=== PATIENT | male | born 1945 | race Caucasian/White ===

== ENCOUNTER 2016-12-21 16:31 | Emergency (ER) | payer MEDICARE, SELFPAY ==
[~2016-12-21] VITALS: Ht 188 cm; Wt 70.5 kg
[~2016-12-21 16:31] MED LIST: ASPI325T PO
[2016-12-21] MEDS ORDERED: LIDOCAINE 2% MDV 20 ML VIAL SC ONE (18:00)
[2016-12-21] MEDS ORDERED: ADACEL/BOOSTRIX VACCINE (DIPHTH/PERTUSS/ACELL/TETANUS)0.5ML SYR (90715) IM ONE (18:00)
[2016-12-21] MEDS ORDERED: KEFL500C17 PO (18:34)
[2016-12-21 18:41] VITALS: BP 136/77
[2016-12-21] MEDS ORDERED: CEPHALEXIN 500 MG CAP PO ONE (18:45)
== END 2016-12-21 18:50 | disposition home or self-care (01) ==
LOC: M ED 16:31
DX: S61.411A Laceration without foreign body of right hand, initial encounter (principal); X58.XXXA Exposure to other specified factors, initial encounter; Y92.099 Unspecified place in other non-institutional residence as the place of occurrence of the external cause; Y93.9 Activity, unspecified; Y99.9 Unspecified external cause status; F17.200 Nicotine dependence, unspecified, uncomplicated

== ENCOUNTER 2018-02-07 19:37 | Emergency (ER) | payer SELFPAY | END 2018-02-07 22:34 | disposition home or self-care (01) | LOC: M ED 19:37 | DX: T68.XXXA Hypothermia, initial encounter (principal); T33.52 Superficial frostbite of hand; I10 Essential (primary) hypertension; F17.210 Nicotine dependence, cigarettes, uncomplicated; Z86.73 Personal history of transient ischemic attack (TIA), and cerebral infarction without residual deficits; Y92.9 Unspecified place or not applicable | CPT/HCPCS: 70450 ==

== ENCOUNTER 2019-02-27 10:51 | Emergency (ER) | payer SELFPAY ==
[~2019-02-27] VITALS: Ht 185.4 cm; Wt 70.0 kg
[~2019-02-27 10:51] MED LIST changes: +KEFL500C17 PO; +NON-325T5 PO
[2019-02-27] MEDS ORDERED: ASPI81TA85 PO (11:08)
[2019-02-27] MEDS ORDERED: multivitamin PO (11:10)
[2019-02-27] MEDS ORDERED: iron PO (11:10)
[2019-02-27] MEDS ORDERED: vitamin d PO (11:10)
--- NOTE | 2019-02-27 11:42 | REP ---
Clinical: Trauma. Comparison: 02/07/2018 . Findings: Age-related atrophy with periventricular leukomalacia and microvascular ischemic changes. 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 The ventricles and sulci are symmetric. [place]-white differentiation is maintained. There is no evidence for acute intracranial hemorrhage, mass/mass effect, pathology or infarction. No extra-axial fluid collection. Calvarium is intact. Paranasal sinuses and mastoid air cells are clear. Impression: Atrophy and evidence for old infarctions. No acute intracranial hemorrhage, infarction, or mass/mass effect. Electronically Signed by Sarwat Coats MD 02/27/2019 11:34 A
--- NOTE | 2019-02-27 11:43 | REP ---
Clinical: Trauma. Technique: Axial noncontrast images from the skull base to the thoracic inlet with coronal and sagittal re-formations. Comparison: 02/07/2018. Findings: Age-related osteopenia and early advanced multilevel degenerative disc osteophyte complexes are appreciated. Alignment and lordosis maintained. No acute fracture / compression injury or subluxation. Posterior elements and spinous processes are intact. Paravertebral soft tissues are normal. Impression: Early advanced multilevel degenerative spondylosis similar to prior examination. No evidence for acute cervical trauma/injury. Electronically Signed by Sawrat Coats MD 02/27/2019 11:36 A
--- NOTE | 2019-02-27 11:56 | REP ---
Clinical: Trauma. Technique: AP, lateral, bilateral oblique views of the right ankle. Findings: Oblique fracture of the distal fibular metaphysis and nondisplaced fracture of the medial malleolus appreciated with overlying soft tissue swelling. Impression: Bilateral malleolar fractures. Electronically Signed by Sarwat Coats MD 02/27/2019 11:49 A
[2019-02-27] MEDS ORDERED: NORC1TAB7 PO (12:25)
[2019-02-27 13:23] VITALS: BP 174/98
[2019-02-27] MEDS ORDERED: wheel chair (13:42)
== END 2019-02-27 14:23 | disposition home or self-care (01) ==
LOC: EDBD 10:51 → M ED 10:51
DX: S82.54XA Nondisplaced fracture of medial malleolus of right tibia, initial encounter for closed fracture (principal); S82.391A Other fracture of lower end of right tibia, initial encounter for closed fracture; S00.03XA Contusion of scalp, initial encounter; W01.0XXA Fall on same level from slipping, tripping and stumbling without subsequent striking against object, initial encounter; Y92.009 Unspecified place in unspecified non-institutional (private) residence as the place of occurrence of the external cause; Y93.K9 Activity, other involving animal care; Y99.9 Unspecified external cause status; I10 Essential (primary) hypertension; M25.78 Osteophyte, vertebrae; M47.812 Spondylosis without myelopathy or radiculopathy, cervical region; F17.200 Nicotine dependence, unspecified, uncomplicated; Z79.82 Long term (current) use of aspirin; Z79.899 Other long term (current) drug therapy

== ENCOUNTER 2020-10-08 12:56 | Emergency (ER) | payer MEDICARE, SELFPAY ==
[~2020-10-08] VITALS: Ht 188 cm; Wt 70.5 kg
[~2020-10-08 12:56] MED LIST changes: +ACET32TAB PO; +ASPI81TA86 PO; -NON-325T5 PO; +NORC1TAB7 PO; +iron PO; +multivitamin PO; +vitamin d PO; +wheel chair
[2020-10-08] MEDS ORDERED: predniSONE 20 MG TAB PO ONE (15:30)
--- NOTE | 2020-10-08 15:58 | REP ---
INDICATION: R HALLUX ARTHRITIS COMPARISON: None. TECHNIQUE: There are four views. FINDINGS: There is diffuse demineralization. The joint spaces are unremarkable. There is hallux valgus. There are no lytic, blastic or destructive skeletal changes. There are no calcifications. IMPRESSION: Demineralization. Hallux valgus. <Electronically signed by Greg Hurtado > 10/08/20 [id number]
[2020-10-08 16:33] LABS: BASO % 0.4 % (0.0-1.0); EOS % 0.3 % (0.0-3.0); HEMATOCRIT 49.3 % (42.0-52.0); HEMOGLOBIN 15.5 g/dl (13.5-17.5); LYMPH % 19.7 % (24.0-44.0); MEAN CORPUSCULAR HEMOGLOBIN 27.3 pg (27.0-33.0); MEAN CORPUSCULAR HGB CONC 31.4 g/dl (32.0-36.5); MEAN CORPUSCULAR VOLUME 86.8 fl (80.0-96.0); MONO # 0.7 10^3/uL (0.0-0.8); MONO % 6.8 % (2.0-8.0); NEUTROPHILS # 7.4 10^3/uL (1.5-8.5); NEUTROPHILS % 72.3 % (36.0-66.0); PLATELET COUNT, AUTOMATED 285 10^3/uL (150-450); RED BLOOD COUNT 5.68 10^6/uL (4.30-6.10); WHITE BLOOD COUNT 10.2 10^3/uL (4.0-10.0)
[2020-10-08 16:38] LABS: ALBUMIN 3.5 GM/DL (3.2-5.2); BILIRUBIN,DIRECT 0.3 MG/DL (0.0-0.2); BILIRUBIN,TOTAL 1.7 MG/DL (0.2-1.0); CALCIUM LEVEL 8.6 MG/DL (8.8-10.2); CREATININE FOR GFR 1.55 MG/DL (0.70-1.30); GLOMERULAR FILTRATION RATE 46.9 (>42); TOTAL PROTEIN 7.9 GM/DL (6.4-8.2)
[2020-10-08 16:39] LABS: C REACTIVE PROTEIN QUANTITATIV 5.1 MG/DL (0.00-0.30)
[2020-10-08 16:52] LABS: ERYTHROCYTE SEDIMENTATION RATE 8 mm/hr (0-20)
[2020-10-08] MEDS ORDERED: PRED20TA PO (16:59)
[2020-10-08 17:11] VITALS: BP 180/82
== END 2020-10-08 17:14 | disposition home or self-care (01) ==
LOC: M ED 12:56
DX: M19.071 Primary osteoarthritis, right ankle and foot (principal); M20.11 Hallux valgus (acquired), right foot; R79.9 Abnormal finding of blood chemistry, unspecified; D72.829 Elevated white blood cell count, unspecified; Z86.73 Personal history of transient ischemic attack (TIA), and cerebral infarction without residual deficits; H40.9 Unspecified glaucoma; F17.200 Nicotine dependence, unspecified, uncomplicated; Z79.82 Long term (current) use of aspirin
CPT/HCPCS: 36415; 73660; 80048; 80076; 84550; 85025; 85652; 86140; 99283; J7512

== ENCOUNTER → 2021-04-11 | Outpatient (CLI) | payer MEDICARE ==
[~2021-04-11] MED LIST changes: +PRED20TA PO
[2021-04-11 17:28] LABS: BASO % 0.4 % (0.0-1.0); EOS # 0.1 10^3/uL (0.0-0.5); EOS % 0.8 % (0.0-3.0); HEMATOCRIT 47.7 % (42.0-52.0); HEMOGLOBIN 15.1 g/dl (13.5-17.5); LYMPH # 2.1 10^3/uL (1.5-5.0); LYMPH % 27.8 % (24.0-44.0); MEAN CORPUSCULAR HEMOGLOBIN 27.2 pg (27.0-33.0); MEAN CORPUSCULAR HGB CONC 31.7 g/dl (32.0-36.5); MEAN CORPUSCULAR VOLUME 85.9 fl (80.0-96.0); MONO # 0.6 10^3/uL (0.0-0.8); MONO % 7.1 % (2.0-8.0); NEUTROPHILS # 4.9 10^3/uL (1.5-8.5); NEUTROPHILS % 63.6 % (36.0-66.0); PLATELET COUNT, AUTOMATED 218 10^3/uL (150-450); RED BLOOD COUNT 5.55 10^6/uL (4.30-6.10); WHITE BLOOD COUNT 7.7 10^3/uL (4.0-10.0)
[2021-04-11 17:57] LABS: ALBUMIN 3.6 GM/DL (3.2-5.2); BILIRUBIN,TOTAL 1.2 MG/DL (0.2-1.0); CALCIUM LEVEL 9.2 MG/DL (8.8-10.2); CHOLESTEROL RISK RATIO 3.886 (<5); CREATININE FOR GFR 1.35 MG/DL (0.70-1.30); POTASSIUM SERUM 4.8 MEQ/L (3.5-5.1); TOTAL PROTEIN 7.4 GM/DL (6.4-8.2)
== END ==
LOC: M PLALAB 15:42
PROVIDERS: ATTEND Student in an Organized Health Care Education/Training Program
DX: R79.89 Other specified abnormal findings of blood chemistry (principal); Z86.73 Personal history of transient ischemic attack (TIA), and cerebral infarction without residual deficits; Z13.0 Encounter for screening for diseases of the blood and blood-forming organs and certain disorders involving the immune mechanism

== ENCOUNTER 2022-02-26 11:56 | Emergency (ER) | payer MEDICARE ==
[~2022-02-26] VITALS: Ht 188 cm; Wt 70.5 kg
[2022-02-26 12:06] VITALS: BP 162/94
== END 2022-02-26 14:21 | disposition home or self-care (01) ==
LOC: EDBD 11:56 → M ED 11:56
DX: S00.93XA Contusion of unspecified part of head, initial encounter (principal); S40.021A Contusion of right upper arm, initial encounter; W01.0XXA Fall on same level from slipping, tripping and stumbling without subsequent striking against object, initial encounter; F17.200 Nicotine dependence, unspecified, uncomplicated; Y92.9 Unspecified place or not applicable; Y93.K1 Activity, walking an animal; Y99.9 Unspecified external cause status; Z79.52 Long term (current) use of systemic steroids; Z86.73 Personal history of transient ischemic attack (TIA), and cerebral infarction without residual deficits

== ENCOUNTER 2022-02-28 12:25 | Inpatient (IN) | payer MEDICARE ==
[~2022-02-28] VITALS: Ht 175.3 cm; Wt 70.0 kg
[2022-02-28 15:39] LABS: BASO % 0.1 % (0.0-1.0); HEMATOCRIT 48.6 % (42.0-52.0); HEMOGLOBIN 15.5 g/dl (13.5-17.5); LYMPH # 0.9 10^3/uL (1.5-5.0); LYMPH % 8.3 % (24.0-44.0); MEAN CORPUSCULAR HEMOGLOBIN 27.9 pg (27.0-33.0); MEAN CORPUSCULAR HGB CONC 31.9 g/dl (32.0-36.5); MEAN CORPUSCULAR VOLUME 87.4 fl (80.0-96.0); MONO # 0.8 10^3/uL (0.0-0.8); MONO % 7.4 % (2.0-8.0); NEUTROPHILS % 83.9 % (36.0-66.0); PLATELET COUNT, AUTOMATED 211 10^3/uL (150-450); RED BLOOD COUNT 5.56 10^6/uL (4.30-6.10); WHITE BLOOD COUNT 10.8 10^3/uL (4.0-10.0)
[2022-02-28 16:08] LABS: CALCIUM LEVEL 9.3 MG/DL (8.3-10.6); CREATININE FOR GFR 1.34 MG/DL (0.70-1.30); GLOMERULAR FILTRATION RATE 55.3 (>42); POTASSIUM SERUM 4.2 MMOL/L (3.5-5.1)
[2022-02-28] MEDS ORDERED: NS 2,010 ML in IV 1 EA IV ONE (17:55)
[2022-02-28] MEDS ORDERED: CLOP75TA2 PO (18:43)
[2022-02-28] MEDS ORDERED: VITMTA PO (18:43)
[2022-02-28] MEDS ORDERED: ASPI81TA26 PO (18:43)
[2022-02-28] MEDS ORDERED: ATOR40TA75 PO (18:43)
[2022-02-28] MEDS ORDERED: med rec comment (18:44)
[2022-02-28] MEDS ORDERED: HOME MED LIST COMPLETE! XX SCH (18:45)
[2022-02-28 19:54] LABS: RSV AMPLIFICATION NEGATIVE (NEGATIVE)
[2022-02-28] MEDS: NS 1,000 ML IV SCH (20:40)
[2022-02-28 20:46] LABS: INR 0.99; PROTHROMBIN TIME 13.3 SECONDS (12.5-14.5)
[2022-02-28 21:45] VITALS: BP 134/78
[2022-03-01] VITALS (8 sets, daily range): BP systolic 97–158; BP diastolic 56–87
[2022-03-01] MEDS: NS 1,000 ML IV SCH ×2 (04:30→08:25)
[2022-03-01 05:47] LABS: HEMATOCRIT 39.1 % (42.0-52.0); MEAN CORPUSCULAR HEMOGLOBIN 28.1 pg (27.0-33.0); MEAN CORPUSCULAR HGB CONC 32.5 g/dl (32.0-36.5); MEAN CORPUSCULAR VOLUME 86.5 fl (80.0-96.0); PLATELET COUNT, AUTOMATED 157 10^3/uL (150-450); RED BLOOD COUNT 4.52 10^6/uL (4.30-6.10); WHITE BLOOD COUNT 7.5 10^3/uL (4.0-10.0)
[2022-03-01 05:57] LABS: HEMOGLOBIN 12.7 g/dl (13.5-17.5)
[2022-03-01 06:20] LABS: MAGNESIUM LEVEL 1.8 MG/DL (1.8-2.4)
[2022-03-01 06:22] LABS: BLOOD UREA NITROGEN 23 MG/DL (9-23); CALCIUM LEVEL 7.9 MG/DL (8.3-10.6); CARBON DIOXIDE LEVEL 23 MMOL/L (20-31); CHLORIDE LEVEL 108 MMOL/L (98-107); CREATININE FOR GFR 1.13 MG/DL (0.70-1.30); GLOMERULAR FILTRATION RATE > 60.0 (>42); GLUCOSE, FASTING 89 MG/DL (74-106); POTASSIUM SERUM 3.8 MMOL/L (3.5-5.1); SODIUM LEVEL 140 MMOL/L (136-145)
[2022-03-01 06:40] LABS: CPK CREATINE PHOSPHOKINASE 4515 U/L (46-171)
[2022-03-01] MEDS: MULTIVITAMINS/MINERALS THERAP 1 TAB PO SCH (08:58)
[2022-03-01] MEDS: ASPIRIN 81MG ENTERIC TABLET PO SCH (08:58)
[2022-03-01] MEDS: CLOPIDOGREL 75 MG TAB PO SCH (08:58)
[2022-03-01] MEDS: ATORVASTATIN 20 MG TAB PO SCH (08:58)
[2022-03-01] MEDS ORDERED: ENOXAPARIN 30MG/0.3ML SYRINGE (J1650 PER 10MG) SC SCH (09:00)
[2022-03-01 11:16] LABS: FREE T4 0.97 NG/DL (0.89-1.76)
[2022-03-01] MEDS: METOPROLOL TART 25 MG TABLET PO SCH ×2 (11:24→21:00)
[2022-03-01] MEDS: APIXABAN 5 MG TAB (ELIQUIS) PO SCH ×2 (11:24→21:26)
[2022-03-01] MEDS: METOPROLOL 5 MG/5 ML VIAL IV SCH ×5 (12:45→13:20)
[2022-03-01] MEDS ORDERED: REMDESIVIR 200 MG in NS 250 ML IV ONE (15:00)
[2022-03-01] MEDS ORDERED: SODIUM CHLORIDE 0.9% INJ 10 ML SYR IV ONE (16:00)
[2022-03-01 17:35] LABS: CK-MB VALUE MASS 2.7 NG/ML (<3.6)
[2022-03-01 17:51] LABS: MB/CK RELATIVE INDEX 0.07 (< OR =4)
[2022-03-01] MEDS ORDERED: RIVAROXABAN 10MG TAB (XARELTO) PO SCH (18:00)
[2022-03-02] VITALS (7 sets, daily range): BP systolic 90–123; BP diastolic 52–70
[2022-03-02 01:30] LABS: CK-MB VALUE MASS 2.3 NG/ML (<3.6)
[2022-03-02] MEDS: METOPROLOL TART 25 MG TABLET PO SCH ×3 (02:03→21:04)
[2022-03-02 02:14] LABS: MB/CK RELATIVE INDEX 0.1 (< OR =4)
[2022-03-02 05:45] LABS: HEMATOCRIT 42.8 % (42.0-52.0); HEMOGLOBIN 13.9 g/dl (13.5-17.5); MEAN CORPUSCULAR HEMOGLOBIN 27.7 pg (27.0-33.0); MEAN CORPUSCULAR HGB CONC 32.5 g/dl (32.0-36.5); MEAN CORPUSCULAR VOLUME 85.4 fl (80.0-96.0); PLATELET COUNT, AUTOMATED 178 10^3/uL (150-450); RED BLOOD COUNT 5.01 10^6/uL (4.30-6.10); WHITE BLOOD COUNT 7.1 10^3/uL (4.0-10.0)
[2022-03-02 06:10] LABS: BILIRUBIN,DIRECT 0.2 MG/DL (<0.4)
[2022-03-02 06:11] LABS: ALBUMIN 2.7 G/DL (3.2-5.2); ALKALINE PHOSPHATASE 42 U/L (46-116); ALT/SGPT 44 U/L (7.0-40); AST/SGOT 107 U/L (<34); BILIRUBIN,TOTAL 0.6 MG/DL (0.3-1.2); BLOOD UREA NITROGEN 15 MG/DL (9-23); CARBON DIOXIDE LEVEL 23 MMOL/L (20-31); CHLORIDE LEVEL 109 MMOL/L (98-107); CREATININE FOR GFR 1.15 MG/DL (0.70-1.30); GLOMERULAR FILTRATION RATE > 60.0 (>42); GLUCOSE, FASTING 92 MG/DL (74-106); POTASSIUM SERUM 3.7 MMOL/L (3.5-5.1); SODIUM LEVEL 141 MMOL/L (136-145); TOTAL PROTEIN 5.8 G/DL (5.7-8.2)
[2022-03-02 06:40] LABS: CPK CREATINE PHOSPHOKINASE 2076 U/L (46-171)
[2022-03-02 09:36] LABS: CK-MB VALUE MASS 1.6 NG/ML (<3.6); MB/CK RELATIVE INDEX 0.07 (< OR =4)
[2022-03-02] MEDS: ASPIRIN 81MG ENTERIC TABLET PO SCH (09:37)
[2022-03-02] MEDS: MULTIVITAMINS/MINERALS THERAP 1 TAB PO SCH (09:37)
[2022-03-02] MEDS: APIXABAN 5 MG TAB (ELIQUIS) PO SCH ×2 (09:37→21:03)
[2022-03-02] MEDS: CLOPIDOGREL 75 MG TAB PO SCH (09:38)
[2022-03-02] MEDS: ATORVASTATIN 20 MG TAB PO SCH (09:38)
[2022-03-02] MEDS ORDERED: DIGOXIN INJ 0.5 MG/2 ML AMP IV ONE (11:05)
[2022-03-02] MEDS: REMDESIVIR 100 MG in NS 250 ML IV SCH (15:39)
[2022-03-02] MEDS: SODIUM CHLORIDE 0.9% INJ 10 ML SYR IV SCH (16:58)
[2022-03-03] VITALS (7 sets, daily range): BP systolic 85–131; BP diastolic 59–71
[2022-03-03 05:59] LABS: HEMATOCRIT 42.9 % (42.0-52.0); HEMOGLOBIN 13.8 g/dl (13.5-17.5); MEAN CORPUSCULAR HEMOGLOBIN 27.5 pg (27.0-33.0); MEAN CORPUSCULAR HGB CONC 32.2 g/dl (32.0-36.5); MEAN CORPUSCULAR VOLUME 85.5 fl (80.0-96.0); PLATELET COUNT, AUTOMATED 156 10^3/uL (150-450); RED BLOOD COUNT 5.02 10^6/uL (4.30-6.10); WHITE BLOOD COUNT 6.9 10^3/uL (4.0-10.0)
[2022-03-03 06:26] LABS: CPK CREATINE PHOSPHOKINASE 798 U/L (46-171)
[2022-03-03 06:30] LABS: BLOOD UREA NITROGEN 27 MG/DL (9-23); CALCIUM LEVEL 7.8 MG/DL (8.3-10.6); CARBON DIOXIDE LEVEL 22 MMOL/L (20-31); CHLORIDE LEVEL 110 MMOL/L (98-107); CREATININE FOR GFR 1.11 MG/DL (0.70-1.30); GLOMERULAR FILTRATION RATE > 60.0 (>42); GLUCOSE, FASTING 91 MG/DL (74-106); POTASSIUM SERUM 3.9 MMOL/L (3.5-5.1); SODIUM LEVEL 143 MMOL/L (136-145)
[2022-03-03 07:58] LABS: BILIRUBIN,DIRECT 0.2 MG/DL (<0.4)
[2022-03-03 08:01] LABS: ALBUMIN 2.4 G/DL (3.2-5.2); ALKALINE PHOSPHATASE 44 U/L (46-116); ALT/SGPT 43 U/L (7.0-40); AST/SGOT 65 U/L (<34); BILIRUBIN,TOTAL 0.5 MG/DL (0.3-1.2); TOTAL PROTEIN 5.2 G/DL (5.7-8.2)
[2022-03-03] MEDS: DIGOXIN 0.25 MG TAB PO SCH (08:29)
[2022-03-03] MEDS: MULTIVITAMINS/MINERALS THERAP 1 TAB PO SCH (08:29)
[2022-03-03] MEDS: METOPROLOL TART 25 MG TABLET PO SCH ×2 (08:29→20:43)
[2022-03-03] MEDS: ATORVASTATIN 20 MG TAB PO SCH (08:29)
[2022-03-03] MEDS: APIXABAN 5 MG TAB (ELIQUIS) PO SCH ×2 (08:30→20:43)
[2022-03-03] MEDS: REMDESIVIR 100 MG in NS 250 ML IV SCH (15:17)
[2022-03-03] MEDS: SODIUM CHLORIDE 0.9% INJ 10 ML SYR IV SCH (16:34)
[2022-03-04 04:25] VITALS: BP 100/60
[2022-03-04 05:28] LABS: HEMATOCRIT 43.8 % (42.0-52.0); HEMOGLOBIN 14.1 g/dl (13.5-17.5); MEAN CORPUSCULAR HEMOGLOBIN 27.5 pg (27.0-33.0); MEAN CORPUSCULAR HGB CONC 32.2 g/dl (32.0-36.5); MEAN CORPUSCULAR VOLUME 85.5 fl (80.0-96.0); PLATELET COUNT, AUTOMATED 182 10^3/uL (150-450); RED BLOOD COUNT 5.12 10^6/uL (4.30-6.10); WHITE BLOOD COUNT 7.5 10^3/uL (4.0-10.0)
[2022-03-04 05:46] LABS: BLOOD UREA NITROGEN 26 MG/DL (9-23); CALCIUM LEVEL 7.7 MG/DL (8.3-10.6); CARBON DIOXIDE LEVEL 22 MMOL/L (20-31); CHLORIDE LEVEL 112 MMOL/L (98-107); CPK CREATINE PHOSPHOKINASE 355 U/L (46-171); CREATININE FOR GFR 1.13 MG/DL (0.70-1.30); GLOMERULAR FILTRATION RATE > 60.0 (>42); GLUCOSE, FASTING 93 MG/DL (74-106); SODIUM LEVEL 144 MMOL/L (136-145)
[2022-03-04 07:42] VITALS: BP 108/51
[2022-03-04] MEDS: APIXABAN 5 MG TAB (ELIQUIS) PO SCH ×2 (09:40→20:16)
[2022-03-04] MEDS: MULTIVITAMINS/MINERALS THERAP 1 TAB PO SCH (09:40)
[2022-03-04] MEDS: DIGOXIN 0.25 MG TAB PO SCH (09:40)
[2022-03-04] MEDS: METOPROLOL TART 25 MG TABLET PO SCH ×2 (09:40→20:17)
[2022-03-04] MEDS: ATORVASTATIN 20 MG TAB PO SCH (09:40)
[2022-03-04 17:34] VITALS: BP 108/59
[2022-03-05 05:40] VITALS: BP 111/59
[2022-03-05] MEDS: ATORVASTATIN 20 MG TAB PO SCH (08:09)
[2022-03-05] MEDS: METOPROLOL TART 25 MG TABLET PO SCH ×2 (08:09→20:05)
[2022-03-05] MEDS: APIXABAN 5 MG TAB (ELIQUIS) PO SCH ×2 (08:09→20:05)
[2022-03-05] MEDS: MULTIVITAMINS/MINERALS THERAP 1 TAB PO SCH (08:09)
[2022-03-05] MEDS: DIGOXIN 0.25 MG TAB PO SCH (08:10)
[2022-03-06 06:00] VITALS: BP 114/69
[2022-03-06] MEDS: MULTIVITAMINS/MINERALS THERAP 1 TAB PO SCH (08:53)
[2022-03-06] MEDS: DIGOXIN 0.25 MG TAB PO SCH (08:54)
[2022-03-06] MEDS: APIXABAN 5 MG TAB (ELIQUIS) PO SCH ×2 (08:54→20:41)
[2022-03-06] MEDS: METOPROLOL TART 25 MG TABLET PO SCH ×2 (08:55→20:54)
[2022-03-06] MEDS: ATORVASTATIN 20 MG TAB PO SCH (08:55)
[2022-03-06 20:42] VITALS: BP 98/60
[2022-03-06 21:54] VITALS: BP 114/59
[2022-03-07 06:00] VITALS: BP 102/70
[2022-03-07] MEDS: METOPROLOL TART 25 MG TABLET PO SCH ×2 (09:00→21:19)
[2022-03-07] MEDS: APIXABAN 5 MG TAB (ELIQUIS) PO SCH ×2 (09:58→21:19)
[2022-03-07] MEDS: MULTIVITAMINS/MINERALS THERAP 1 TAB PO SCH (09:58)
[2022-03-07] MEDS: ATORVASTATIN 20 MG TAB PO SCH (09:59)
[2022-03-07] MEDS: DIGOXIN 0.25 MG TAB PO SCH (09:59)
[2022-03-07 20:11] VITALS: BP 111/66
[2022-03-08 05:00] VITALS: BP 127/66
[2022-03-08] MEDS: MULTIVITAMINS/MINERALS THERAP 1 TAB PO SCH (08:21)
[2022-03-08] MEDS: DIGOXIN 0.25 MG TAB PO SCH (08:22)
[2022-03-08] MEDS: APIXABAN 5 MG TAB (ELIQUIS) PO SCH ×2 (08:22→22:03)
[2022-03-08] MEDS: ATORVASTATIN 20 MG TAB PO SCH (08:22)
[2022-03-08] MEDS: METOPROLOL TART 25 MG TABLET PO SCH ×2 (08:22→22:03)
[2022-03-09 04:30] VITALS: BP 113/72
[2022-03-09] MEDS: APIXABAN 5 MG TAB (ELIQUIS) PO SCH ×2 (09:44→20:09)
[2022-03-09] MEDS: ATORVASTATIN 20 MG TAB PO SCH (09:44)
[2022-03-09] MEDS: MULTIVITAMINS/MINERALS THERAP 1 TAB PO SCH (09:44)
[2022-03-09] MEDS: DIGOXIN 0.25 MG TAB PO SCH (09:45)
[2022-03-09] MEDS: METOPROLOL TART 25 MG TABLET PO SCH ×2 (09:45→20:09)
[2022-03-10 06:00] VITALS: BP 110/65
[2022-03-10] MEDS: MULTIVITAMINS/MINERALS THERAP 1 TAB PO SCH (08:51)
[2022-03-10] MEDS: APIXABAN 5 MG TAB (ELIQUIS) PO SCH ×2 (08:51→22:19)
[2022-03-10] MEDS: ATORVASTATIN 20 MG TAB PO SCH (08:51)
[2022-03-10] MEDS: DIGOXIN 0.25 MG TAB PO SCH (08:52)
[2022-03-10] MEDS: METOPROLOL TART 25 MG TABLET PO SCH ×2 (08:54→22:19)
[2022-03-10 14:18] VITALS: BP 108/61
[2022-03-10 18:00] VITALS: BP 110/61
[2022-03-10 22:19] VITALS: BP 127/80
[2022-03-11 06:00] VITALS: BP 107/64
[2022-03-11] MEDS: MULTIVITAMINS/MINERALS THERAP 1 TAB PO SCH (10:01)
[2022-03-11] MEDS: APIXABAN 5 MG TAB (ELIQUIS) PO SCH ×2 (10:01→19:49)
[2022-03-11] MEDS: METOPROLOL TART 25 MG TABLET PO SCH ×2 (10:02→19:50)
[2022-03-11] MEDS: DIGOXIN 0.25 MG TAB PO SCH (10:02)
[2022-03-11] MEDS: SENOKOT S TAB PO SCH ×2 (10:02→19:49)
[2022-03-11] MEDS: ATORVASTATIN 20 MG TAB PO SCH (10:02)
[2022-03-12 06:00] VITALS: BP 120/72
[2022-03-12] MEDS ORDERED: DIGO0.253 PO (08:32)
[2022-03-12] MEDS ORDERED: SENN-52 PO (08:32)
[2022-03-12] MEDS ORDERED: METO1TAB87 PO (08:32)
[2022-03-12] MEDS ORDERED: ELIQ5TAB PO (08:32)
[2022-03-12] MEDS: DIGOXIN 0.25 MG TAB PO SCH (09:17)
[2022-03-12] MEDS: METOPROLOL TART 25 MG TABLET PO SCH (09:17)
[2022-03-12] MEDS: ATORVASTATIN 20 MG TAB PO SCH (09:17)
[2022-03-12] MEDS: SENOKOT S TAB PO SCH (09:17)
[2022-03-12] MEDS: MULTIVITAMINS/MINERALS THERAP 1 TAB PO SCH (09:17)
[2022-03-12] MEDS: APIXABAN 5 MG TAB (ELIQUIS) PO SCH (09:17)
== END 2022-03-12 12:33 | disposition home or self-care (01) | DRG 557 ==
LOC: M ED 12:25 → EDBD 12:25 → M ED INP 18:08 → M MSPAV 21:34 → M PCU 03-01 11:18 → M MSPAV 03-04 17:26
PROVIDERS: ADMIT Student in an Organized Health Care Education/Training Program; ATTEND Family Medicine
DX: M62.82 Rhabdomyolysis (principal); U07.1 COVID-19; I69.351 Hemiplegia and hemiparesis following cerebral infarction affecting right dominant side; N18.30 Chronic kidney disease, stage 3 unspecified; I65.22 Occlusion and stenosis of left carotid artery; E78.2 Mixed hyperlipidemia; I10 Essential (primary) hypertension; I48.91 Unspecified atrial fibrillation; F17.210 Nicotine dependence, cigarettes, uncomplicated; R29.6 Repeated falls; Z79.899 Other long term (current) drug therapy; Z79.82 Long term (current) use of aspirin; M10.9 Gout, unspecified; R55 Syncope and collapse

== ENCOUNTER → 2022-04-24 | Outpatient (CLI) | payer MEDICARE, BC ==
[~2022-04-24] MED LIST changes: +ASPI81TA26 PO; +ATOR40TA75 PO; +CLOP75TA2 PO; +DIGO0.253 PO; +ELIQ5TAB PO; +METO1TAB87 PO; +SENN-52 PO; +VITMTA PO; +med rec comment
[2022-04-24 18:06] LABS: CPK CREATINE PHOSPHOKINASE 36 U/L (46-171)
[2022-04-24 18:47] LABS: BLOOD UREA NITROGEN 17 MG/DL (9-23); CALCIUM LEVEL 8.9 MG/DL (8.3-10.6); CARBON DIOXIDE LEVEL 30 MMOL/L (20-31); CHLORIDE LEVEL 104 MMOL/L (98-107); CHOLESTEROL LEVEL 134 MG/DL (<200); CHOLESTEROL RISK RATIO 3.44 (<5); GLUCOSE, FASTING 93 MG/DL (74-106); HDL CHOLESTEROL 38.9 MG/DL (>40); LDL CHOLESTEROL 60.1 MG/DL (<100); NON-HDL-C 95 MG/DL; POTASSIUM SERUM 4.1 MMOL/L (3.5-5.1); SODIUM LEVEL 139 MMOL/L (136-145); TRIGLYCERIDES LEVEL 175 MG/DL (<150)
[2022-04-24 20:12] LABS: CREATININE FOR GFR 1.09 MG/DL (0.70-1.30); GLOMERULAR FILTRATION RATE > 60.0 (>42)
== END ==
LOC: M PLALAB 15:43
PROVIDERS: ATTEND Student in an Organized Health Care Education/Training Program
DX: E78.2 Mixed hyperlipidemia (principal); Z92.89 Personal history of other medical treatment

== ENCOUNTER → 2022-11-01 | Outpatient (CLI) | payer MEDICARE, BC | LOC: M PLALAB 15:20 | PROVIDERS: ATTEND Student in an Organized Health Care Education/Training Program | DX: R78.89 Finding of other specified substances, not normally found in blood (principal); Z79.899 Other long term (current) drug therapy ==

== ENCOUNTER 2023-03-19 12:25 | Inpatient (IN) | payer MEDICARE, BC ==
[2023-03-19] MEDS ORDERED: SENN-52 PO (13:53)
[2023-03-19] MEDS ORDERED: METO1TAB87 PO (13:53)
[2023-03-19] MEDS ORDERED: DIGO0.253 PO (13:53)
[2023-03-19] MEDS ORDERED: CVS1CAP5 PO (13:53)
[2023-03-19] MEDS ORDERED: IBUP-1720 PO (13:53)
[2023-03-19] MEDS ORDERED: ELIQ5TAB PO (13:53)
[2023-03-19] MEDS ORDERED: HOME MED LIST COMPLETE! XX SCH (13:55)
[2023-03-19 14:22] LABS: HEMATOCRIT 52.4 % (42.0-52.0); HEMOGLOBIN 17.6 g/dl (13.5-17.5); MEAN CORPUSCULAR HEMOGLOBIN 28.9 pg (27.0-33.0); MEAN CORPUSCULAR HGB CONC 33.6 g/dl (32.0-36.5); MEAN CORPUSCULAR VOLUME 86.2 fl (80.0-96.0); PLATELET COUNT, AUTOMATED 242 10^3/uL (150-450); RED BLOOD COUNT 6.08 10^6/uL (4.30-6.10); WHITE BLOOD COUNT 23.1 10^3/uL (4.0-10.0)
[2023-03-19 14:48] LABS: BLOOD UREA NITROGEN 30 MG/DL (9-23); CALCIUM LEVEL 8.9 MG/DL (8.3-10.6); CARBON DIOXIDE LEVEL 26 MMOL/L (20-31); CHLORIDE LEVEL 100 MMOL/L (98-107); DIGOXIN LEVEL 0.5 NG/ML (0.8-2.0); GLOMERULAR FILTRATION RATE > 60.0 (>42); GLUCOSE, FASTING 146 MG/DL (74-106); POTASSIUM SERUM 4.9 MMOL/L (3.5-5.1); SODIUM LEVEL 136 MMOL/L (136-145)
[2023-03-19 15:01] LABS: CPK CREATINE PHOSPHOKINASE 1611 U/L (46-171)
[2023-03-19] MEDS ORDERED: NS 500 ML IV ONE (15:10)
[2023-03-19] MEDS ORDERED: SENOKOT S TAB PO PRN (15:20)
[2023-03-19] MEDS: NS 1,000 ML IV SCH ×2 (16:33→23:26)
[2023-03-19 16:37] LABS: ALBUMIN 3.6 G/DL (3.2-5.2); ALKALINE PHOSPHATASE 64 U/L (46-116); ALT/SGPT 30 U/L (7.0-40); AST/SGOT 68 U/L (<34); BILIRUBIN,DIRECT 0.3 MG/DL (<0.4); BILIRUBIN,TOTAL 1.2 MG/DL (0.3-1.2); TOTAL PROTEIN 7.7 G/DL (5.7-8.2)
[2023-03-19 16:39] LABS: PROCALCITONIN 0.12 ng/ml
[2023-03-19] MEDS: APIXABAN 5 MG TAB (ELIQUIS) PO SCH (23:24)
[2023-03-19] MEDS: METOPROLOL TART 25 MG TABLET PO SCH (23:25)
[2023-03-20 04:24] VITALS: BP 134/78; TEMP 97.9; O2SAT 98
[2023-03-20] MEDS: NS 1,000 ML IV SCH ×3 (05:14→18:41)
[2023-03-20] MEDS ORDERED: ENOXAPARIN 40MG/0.4ML SYRINGE (J1650 PER 10MG) SC SCH (09:00)
[2023-03-20] MEDS: METOPROLOL TART 25 MG TABLET PO SCH ×2 (09:00→22:17)
[2023-03-20] MEDS: APIXABAN 5 MG TAB (ELIQUIS) PO SCH ×2 (09:10→22:18)
[2023-03-20] MEDS: ASPIRIN 81MG ENTERIC TABLET PO SCH (09:10)
[2023-03-20] MEDS: MULTIVITAMINS/MINERALS THERAP 1 TAB PO SCH (09:10)
[2023-03-20] MEDS: DIGOXIN 0.25 MG TAB PO SCH (09:11)
[2023-03-20 09:47] LABS: HEMATOCRIT 43.9 % (42.0-52.0); MEAN CORPUSCULAR HEMOGLOBIN 28.9 pg (27.0-33.0); MEAN CORPUSCULAR HGB CONC 32.8 g/dl (32.0-36.5); PLATELET COUNT, AUTOMATED 229 10^3/uL (150-450); RED BLOOD COUNT 4.99 10^6/uL (4.30-6.10); WHITE BLOOD COUNT 14.3 10^3/uL (4.0-10.0)
[2023-03-20 09:49] LABS: HEMOGLOBIN 14.4 g/dl (13.5-17.5)
[2023-03-20 10:38] LABS: CALCIUM LEVEL 7.9 MG/DL (8.3-10.6); CREATININE FOR GFR 1.3 MG/DL (0.70-1.30); GLOMERULAR FILTRATION RATE 57.1 (>42); POTASSIUM SERUM 4.1 MMOL/L (3.5-5.1); TOTAL PROTEIN 6.3 G/DL (5.7-8.2)
[2023-03-20 14:00] VITALS: BP 121/90; TEMP 97.5; O2SAT 98
[2023-03-20 19:22] VITALS: BP 129/62; TEMP 97.3; O2SAT 96
[2023-03-21] MEDS: NS 1,000 ML IV SCH ×3 (01:22→13:43)
[2023-03-21 05:06] VITALS: BP 144/63; TEMP 97.9; O2SAT 96
[2023-03-21 06:10] LABS: BASO % 0.3 % (0.0-1.0); EOS # 0.1 10^3/uL (0.0-0.5); LYMPH # 2.6 10^3/uL (1.5-5.0); LYMPH % 24.2 % (24.0-44.0); MEAN CORPUSCULAR HEMOGLOBIN 28.8 pg (27.0-33.0); MEAN CORPUSCULAR HGB CONC 32.4 g/dl (32.0-36.5); MONO # 0.9 10^3/uL (0.0-0.8); MONO % 8.5 % (2.0-8.0); NEUTROPHILS # 7.1 10^3/uL (1.5-8.5); NEUTROPHILS % 65.7 % (36.0-66.0); PLATELET COUNT, AUTOMATED 174 10^3/uL (150-450); RED BLOOD COUNT 4.27 10^6/uL (4.30-6.10); WHITE BLOOD COUNT 10.8 10^3/uL (4.0-10.0)
[2023-03-21 06:13] LABS: HEMOGLOBIN 12.3 g/dl (13.5-17.5)
[2023-03-21 06:30] LABS: BLOOD UREA NITROGEN 27 MG/DL (9-23); CALCIUM LEVEL 7.4 MG/DL (8.3-10.6); CARBON DIOXIDE LEVEL 22 MMOL/L (20-31); CHLORIDE LEVEL 116 MMOL/L (98-107); GLOMERULAR FILTRATION RATE > 60.0 (>42); GLUCOSE, FASTING 89 MG/DL (74-106); POTASSIUM SERUM 4.1 MMOL/L (3.5-5.1); SODIUM LEVEL 144 MMOL/L (136-145)
[2023-03-21 06:31] LABS: CPK CREATINE PHOSPHOKINASE 834 U/L (46-171)
[2023-03-21 08:54] VITALS: BP 144/63
[2023-03-21] MEDS: MULTIVITAMINS/MINERALS THERAP 1 TAB PO SCH (08:54)
[2023-03-21] MEDS: APIXABAN 5 MG TAB (ELIQUIS) PO SCH (08:54)
[2023-03-21] MEDS: METOPROLOL TART 25 MG TABLET PO SCH (08:54)
[2023-03-21] MEDS: DIGOXIN 0.25 MG TAB PO SCH (08:54)
[2023-03-21] MEDS: ASPIRIN 81MG ENTERIC TABLET PO SCH (08:54)
[2023-03-21] MEDS ORDERED: PREVNAR-20 VACCINE 0.5ML SYRINGE IM.IMMUN ONE (09:00)
[2023-03-21] MEDS ORDERED: FLUZONE HIGH DOSE(65YR UP)QUAD/PF 240MCG/0.7ML SYRINGE IM.IMMUN ONE (09:00)
== END 2023-03-21 15:48 | DRG 557 ==
LOC: M ED 12:25 → EDBD 12:25 → M ED INP 12:26 → OBSVTOIN 16:27 → M MSPAV 03-20 04:23
PROVIDERS: ADMIT Internal Medicine; ATTEND Internal Medicine
DX: M62.82 Rhabdomyolysis (principal); U07.1 COVID-19; I48.0 Paroxysmal atrial fibrillation; Z79.01 Long term (current) use of anticoagulants; R26.9 Unspecified abnormalities of gait and mobility; L89.216 Pressure-induced deep tissue damage of right hip; Z86.73 Personal history of transient ischemic attack (TIA), and cerebral infarction without residual deficits; D45 Polycythemia vera; E86.0 Dehydration; Z79.82 Long term (current) use of aspirin; Z79.899 Other long term (current) drug therapy

== ENCOUNTER 2023-03-21 13:24 | Inpatient (IN) | payer MEDICARE, BC ==
[~2023-03-21] VITALS: Ht 188 cm; Wt 67.5 kg
[~2023-03-21 13:24] MED LIST changes: +CVS1CAP5 PO; +IBUP-1720 PO
[2023-03-21] MEDS ORDERED: ONDANSETRON 4MG TAB PO PRN (14:50)
[2023-03-21 15:50] VITALS: BP 149/68; TEMP 97.2; O2SAT 95
[2023-03-21] MEDS: NS 1,000 ML IV SCH ×2 (18:13→21:15)
[2023-03-21 20:00] VITALS: BP 142/63; TEMP 98.8; O2SAT 99
[2023-03-21] MEDS: APIXABAN 5 MG TAB (ELIQUIS) PO SCH (21:03)
[2023-03-21] MEDS: METOPROLOL TART 25 MG TABLET PO SCH (21:03)
[2023-03-22] MEDS: NS 1,000 ML IV SCH ×2 (03:22→09:35)
[2023-03-22 06:00] VITALS: BP 140/60; TEMP 98; O2SAT 97
[2023-03-22 08:20] LABS: BASO % 0.4 % (0.0-1.0); EOS # 0.2 10^3/uL (0.0-0.5); EOS % 2.1 % (0.0-3.0); HEMATOCRIT 38.5 % (42.0-52.0); HEMOGLOBIN 12.6 g/dl (13.5-17.5); LYMPH # 2.6 10^3/uL (1.5-5.0); LYMPH % 25.5 % (24.0-44.0); MEAN CORPUSCULAR HEMOGLOBIN 29.2 pg (27.0-33.0); MEAN CORPUSCULAR HGB CONC 32.7 g/dl (32.0-36.5); MEAN CORPUSCULAR VOLUME 89.1 fl (80.0-96.0); MONO # 0.8 10^3/uL (0.0-0.8); MONO % 7.7 % (2.0-8.0); NEUTROPHILS # 6.5 10^3/uL (1.5-8.5); PLATELET COUNT, AUTOMATED 186 10^3/uL (150-450); RED BLOOD COUNT 4.32 10^6/uL (4.30-6.10); WHITE BLOOD COUNT 10.1 10^3/uL (4.0-10.0)
[2023-03-22 08:22] LABS: BLOOD UREA NITROGEN 19 MG/DL (9-23); CALCIUM LEVEL 7.5 MG/DL (8.3-10.6); CARBON DIOXIDE LEVEL 23 MMOL/L (20-31); CHLORIDE LEVEL 112 MMOL/L (98-107); CREATININE FOR GFR 1.06 MG/DL (0.70-1.30); GLOMERULAR FILTRATION RATE > 60.0 (>42); GLUCOSE, FASTING 85 MG/DL (74-106); POTASSIUM SERUM 3.9 MMOL/L (3.5-5.1); SODIUM LEVEL 141 MMOL/L (136-145)
[2023-03-22] MEDS ORDERED: ASPIRIN 81MG ENTERIC TABLET PO SCH (09:00)
[2023-03-22] MEDS: APIXABAN 5 MG TAB (ELIQUIS) PO SCH ×2 (09:32→20:26)
[2023-03-22] MEDS: MULTIVITAMINS/MINERALS THERAP 1 TAB PO SCH (09:32)
[2023-03-22] MEDS: DIGOXIN 0.25 MG TAB PO SCH (09:32)
[2023-03-22] MEDS: METOPROLOL TART 25 MG TABLET PO SCH ×2 (09:33→20:25)
[2023-03-22 14:00] VITALS: BP 164/74; TEMP 98; O2SAT 94
[2023-03-22 20:00] VITALS: BP 156/65; TEMP 99.6; O2SAT 98
[2023-03-23 06:00] VITALS: BP 152/67; TEMP 99; O2SAT 94
[2023-03-23] MEDS: NS 1,000 ML IV SCH (06:41)
[2023-03-23] MEDS: MULTIVITAMINS/MINERALS THERAP 1 TAB PO SCH (08:37)
[2023-03-23] MEDS: DIGOXIN 0.25 MG TAB PO SCH (08:37)
[2023-03-23] MEDS: APIXABAN 5 MG TAB (ELIQUIS) PO SCH ×2 (08:37→20:39)
[2023-03-23] MEDS: METOPROLOL TART 25 MG TABLET PO SCH ×2 (08:38→20:40)
[2023-03-23 14:00] VITALS: BP 142/62; TEMP 99; O2SAT 97
[2023-03-23 20:00] VITALS: BP 146/66; TEMP 98.4; O2SAT 93
[2023-03-24 06:00] VITALS: BP 158/68; TEMP 97.8; O2SAT 95
[2023-03-24] MEDS: APIXABAN 5 MG TAB (ELIQUIS) PO SCH ×2 (08:31→20:35)
[2023-03-24] MEDS: METOPROLOL TART 25 MG TABLET PO SCH ×2 (08:32→20:35)
[2023-03-24] MEDS: DIGOXIN 0.25 MG TAB PO SCH (08:32)
[2023-03-24] MEDS: MULTIVITAMINS/MINERALS THERAP 1 TAB PO SCH (08:32)
[2023-03-24 14:00] VITALS: BP 136/63; TEMP 98; O2SAT 97
[2023-03-24] MEDS: ACETAMINOPHEN TAB 650MG DOSE (2X325MG) PO PRN ×2 (16:29→20:35)
[2023-03-24 20:00] VITALS: BP 136/61; TEMP 98.9; O2SAT 95
[2023-03-25 06:00] VITALS: BP 148/65; TEMP 98.4; O2SAT 94
[2023-03-25] MEDS: MULTIVITAMINS/MINERALS THERAP 1 TAB PO SCH (07:40)
[2023-03-25] MEDS: METOPROLOL TART 25 MG TABLET PO SCH ×2 (07:40→20:09)
[2023-03-25] MEDS: APIXABAN 5 MG TAB (ELIQUIS) PO SCH ×2 (07:41→20:09)
[2023-03-25] MEDS: DIGOXIN 0.25 MG TAB PO SCH (07:41)
[2023-03-25 09:00] LABS: HEMATOCRIT 41.3 % (42.0-52.0); HEMOGLOBIN 13.1 g/dl (13.5-17.5); MEAN CORPUSCULAR HEMOGLOBIN 28.1 pg (27.0-33.0); MEAN CORPUSCULAR HGB CONC 31.7 g/dl (32.0-36.5); MEAN CORPUSCULAR VOLUME 88.4 fl (80.0-96.0); PLATELET COUNT, AUTOMATED 261 10^3/uL (150-450); RED BLOOD COUNT 4.67 10^6/uL (4.30-6.10); WHITE BLOOD COUNT 12.2 10^3/uL (4.0-10.0)
[2023-03-25 09:07] LABS: ALBUMIN 2.8 G/DL (3.2-5.2); ALKALINE PHOSPHATASE 52 U/L (46-116); ALT/SGPT 37 U/L (7.0-40); AST/SGOT 17 U/L (<34); BLOOD UREA NITROGEN 17 MG/DL (9-23); CARBON DIOXIDE LEVEL 28 MMOL/L (20-31); CHLORIDE LEVEL 104 MMOL/L (98-107); CREATININE FOR GFR 1.18 MG/DL (0.70-1.30); GLOMERULAR FILTRATION RATE > 60.0 (>42); GLUCOSE, FASTING 95 MG/DL (74-106); MAGNESIUM LEVEL 2.2 MG/DL (1.8-2.4); POTASSIUM SERUM 4.3 MMOL/L (3.5-5.1); SODIUM LEVEL 138 MMOL/L (136-145); TOTAL PROTEIN 6.7 G/DL (5.7-8.2)
[2023-03-25 14:00] VITALS: BP 103/53; TEMP 97.6; O2SAT 96
[2023-03-25] MEDS ORDERED: MIRALAX *UNIT DOSE* 17GM PACKET PO PRN (14:45)
[2023-03-25 20:00] VITALS: BP 125/57; TEMP 98.2; O2SAT 95
[2023-03-25] MEDS: ATORVASTATIN 20 MG TAB PO SCH (20:09)
[2023-03-26 06:00] VITALS: BP 122/58; TEMP 97.3; O2SAT 93
[2023-03-26] MEDS: MULTIVITAMINS/MINERALS THERAP 1 TAB PO SCH (08:25)
[2023-03-26] MEDS: APIXABAN 5 MG TAB (ELIQUIS) PO SCH ×2 (08:25→20:20)
[2023-03-26] MEDS: DIGOXIN 0.25 MG TAB PO SCH (08:29)
[2023-03-26] MEDS: METOPROLOL TART 25 MG TABLET PO SCH ×2 (08:30→20:20)
[2023-03-26 16:03] VITALS: BP 122/62; TEMP 98.1; O2SAT 94
[2023-03-26] MEDS: SANTYL OINT 30GM TOP SCH (17:52)
[2023-03-26 20:00] VITALS: BP 115/55; TEMP 98.4; O2SAT 95
[2023-03-26] MEDS: ATORVASTATIN 20 MG TAB PO SCH (20:20)
[2023-03-27 06:00] VITALS: BP 118/57; TEMP 97.1; O2SAT 99
[2023-03-27 06:52] LABS: HEMATOCRIT 36.7 % (42.0-52.0); HEMOGLOBIN 12.2 g/dl (13.5-17.5); MEAN CORPUSCULAR HEMOGLOBIN 29.1 pg (27.0-33.0); MEAN CORPUSCULAR HGB CONC 33.2 g/dl (32.0-36.5); MEAN CORPUSCULAR VOLUME 87.6 fl (80.0-96.0); PLATELET COUNT, AUTOMATED 245 10^3/uL (150-450); RED BLOOD COUNT 4.19 10^6/uL (4.30-6.10); WHITE BLOOD COUNT 9.6 10^3/uL (4.0-10.0)
[2023-03-27] MEDS: APIXABAN 5 MG TAB (ELIQUIS) PO SCH ×2 (08:22→21:00)
[2023-03-27] MEDS: METOPROLOL TART 25 MG TABLET PO SCH ×2 (08:22→19:44)
[2023-03-27] MEDS: DIGOXIN 0.25 MG TAB PO SCH (08:23)
[2023-03-27] MEDS: MULTIVITAMINS/MINERALS THERAP 1 TAB PO SCH (08:23)
[2023-03-27] MEDS: SANTYL OINT 30GM TOP SCH (08:23)
[2023-03-27 14:00] VITALS: BP 114/62; TEMP 98.2; O2SAT 100
[2023-03-27 19:44] VITALS: BP 112/56
[2023-03-27 20:00] VITALS: BP 112/56; TEMP 98.1; O2SAT 95
[2023-03-27] MEDS: ATORVASTATIN 20 MG TAB PO SCH (21:00)
[2023-03-28 06:00] VITALS: BP 133/63; TEMP 97.9; O2SAT 92
[2023-03-28] MEDS: METOPROLOL TART 25 MG TABLET PO SCH (08:13)
[2023-03-28] MEDS: DIGOXIN 0.25 MG TAB PO SCH (08:13)
[2023-03-28] MEDS: MULTIVITAMINS/MINERALS THERAP 1 TAB PO SCH (08:13)
[2023-03-28] MEDS: APIXABAN 5 MG TAB (ELIQUIS) PO SCH (08:13)
[2023-03-28] MEDS: SANTYL OINT 30GM TOP SCH (08:14)
[2023-03-28] MEDS ORDERED: SANT250O8 TOP (13:22)
[2023-03-28] MEDS ORDERED: ATOR1TAB21 PO (13:22)
== END 2023-03-28 14:25 | disposition home health service (06) | DRG 555 ==
LOC: M PM&R 15:50
PROVIDERS: ADMIT Student in an Organized Health Care Education/Training Program; ATTEND Student in an Organized Health Care Education/Training Program
PROC: 8E0ZXY6 Isolation (ICD-10-PCS; principal; 2023-03-21)
DX: R26.2 Difficulty in walking, not elsewhere classified (principal); U07.1 COVID-19; I69.351 Hemiplegia and hemiparesis following cerebral infarction affecting right dominant side; M62.82 Rhabdomyolysis; I48.0 Paroxysmal atrial fibrillation; N18.30 Chronic kidney disease, stage 3 unspecified; M10.9 Gout, unspecified; D75.1 Secondary polycythemia; F17.210 Nicotine dependence, cigarettes, uncomplicated; R55 Syncope and collapse; I12.9 Hypertensive chronic kidney disease with stage 1 through stage 4 chronic kidney disease, or unspecified chronic kidney disease; I65.23 Occlusion and stenosis of bilateral carotid arteries; Z74.1 Need for assistance with personal care; Z74.09 Other reduced mobility; L89.216 Pressure-induced deep tissue damage of right hip; Z79.01 Long term (current) use of anticoagulants; Z79.82 Long term (current) use of aspirin; Z79.899 Other long term (current) drug therapy; M25.511 Pain in right shoulder; K59.00 Constipation, unspecified

== ENCOUNTER → 2023-04-09 | Outpatient (CLI) | payer MEDICARE, BC ==
[~2023-04-09] MED LIST changes: +ATOR1TAB21 PO; +SANT250O8 TOP
[2023-04-09 16:19] LABS: HEMATOCRIT 43.7 % (42.0-52.0); HEMOGLOBIN 13.4 g/dl (13.5-17.5); MEAN CORPUSCULAR HEMOGLOBIN 28.3 pg (27.0-33.0); MEAN CORPUSCULAR HGB CONC 30.7 g/dl (32.0-36.5); MEAN CORPUSCULAR VOLUME 92.4 fl (80.0-96.0); PLATELET COUNT, AUTOMATED 308 10^3/uL (150-450); RED BLOOD COUNT 4.73 10^6/uL (4.30-6.10); WHITE BLOOD COUNT 11.7 10^3/uL (4.0-10.0)
[2023-04-09 16:54] LABS: CALCIUM LEVEL 8.9 MG/DL (8.3-10.6); CHOLESTEROL RISK RATIO 2.85 (<5); CREATININE FOR GFR 1.3 MG/DL (0.70-1.30); GLOMERULAR FILTRATION RATE 57.1 (>42); HDL CHOLESTEROL 38.2 MG/DL (>40); LDL CHOLESTEROL 48.4 MG/DL (<100); NON-HDL-C 70.8 MG/DL; POTASSIUM SERUM 4.4 MMOL/L (3.5-5.1)
[2023-04-09 16:56] LABS: THYROID STIMULATING HORMONE 5.697 uIU/ML (0.55-4.78)
[2023-04-09 20:21] LABS: HEMOGLOBIN A1c 5.5 % (4.0-6.0)
== END ==
LOC: M PLALAB 12:18
PROVIDERS: ATTEND Student in an Organized Health Care Education/Training Program
DX: Z09 Encounter for follow-up examination after completed treatment for conditions other than malignant neoplasm (principal); Z79.899 Other long term (current) drug therapy

== ENCOUNTER → 2023-08-15 | Outpatient (CLI) | payer MEDICARE, BC | LOC: M PLAIMG 14:42 → M PLALAB 14:42 | PROVIDERS: ATTEND Student in an Organized Health Care Education/Training Program | DX: R09.89 Other specified symptoms and signs involving the circulatory and respiratory systems (principal) ==

== ENCOUNTER → 2024-04-07 | Outpatient (CLI) | payer MEDICARE, BC ==
[2024-04-08 12:25] LABS: HEMOGLOBIN A1c 5.5 % (4.0-6.0)
[2024-04-08 12:49] LABS: CHOLESTEROL RISK RATIO 3.15 (<5); HDL CHOLESTEROL 47.8 MG/DL (>40); LDL CHOLESTEROL 61.8 MG/DL (<100); NON-HDL-C 103.2 MG/DL
[2024-04-08 12:52] LABS: TOTAL 25(OH) VITAMIN D 26.7 NG/ML (20.0-100.0)
== END ==
LOC: M PLALAB 16:32
PROVIDERS: ATTEND Student in an Organized Health Care Education/Training Program
DX: Z00.00 Encounter for general adult medical examination without abnormal findings (principal)

== ENCOUNTER 2024-07-06 11:49 | Inpatient (IN) | payer MEDICARE, BC ==
[~2024-07-06] VITALS: Ht 175.3 cm; Wt 62.6 kg
[2024-07-06 12:56] LABS: BASO % 0.2 % (0.0-1.0); EOS % 0.1 % (0.0-3.0); HEMATOCRIT 52.3 % (42.0-52.0); HEMOGLOBIN 16.9 g/dl (13.5-17.5); LYMPH # 1.9 10^3/uL (1.5-5.0); LYMPH % 9.7 % (24.0-44.0); MEAN CORPUSCULAR HEMOGLOBIN 28.1 pg (27.0-33.0); MEAN CORPUSCULAR HGB CONC 32.3 g/dl (32.0-36.5); MONO # 1.4 10^3/uL (0.0-0.8); MONO % 7.3 % (2.0-8.0); NEUTROPHILS # 15.6 10^3/uL (1.5-8.5); PLATELET COUNT, AUTOMATED 293 10^3/uL (150-450); RED BLOOD COUNT 6.01 10^6/uL (4.30-6.10); WHITE BLOOD COUNT 19.1 10^3/uL (4.0-10.0)
[2024-07-06] MEDS: NS (Normal Saline) 0.9% 1,000 ML IV ONE (13:17)
[2024-07-06 13:20] LABS: BLOOD UREA NITROGEN 47 MG/DL (9-23); CALCIUM LEVEL 8.8 MG/DL (8.3-10.6); CARBON DIOXIDE LEVEL 24 MMOL/L (20-31); CHLORIDE LEVEL 108 MMOL/L (98-107); CREATININE FOR GFR 1.34 MG/DL (0.70-1.30); GLOMERULAR FILTRATION RATE 54.2 (>42); GLUCOSE, FASTING 122 MG/DL (74-106); POTASSIUM SERUM 4.2 MMOL/L (3.5-5.1); SODIUM LEVEL 146 MMOL/L (136-145)
[2024-07-06 13:40] LABS: CPK CREATINE PHOSPHOKINASE 1880 U/L (46-171)
[2024-07-06] MEDS: APIXABAN 5 MG TAB PO ONE (15:21)
[2024-07-06] MEDS: METOPROLOL TART 25 MG TABLET PO ONE (15:21)
[2024-07-06] MEDS ORDERED: D5W 1,000 ML IV SCH (15:45)
[2024-07-06] MEDS ORDERED: ACET1TAB55 PO (15:54)
[2024-07-06] MEDS ORDERED: MULT-40 PO (15:54)
[2024-07-06] MEDS ORDERED: HOME MED LIST COMPLETE! XX SCH (16:00)
[2024-07-06] MEDS: DIGOXIN INJ 0.5 MG/2 ML AMP IV SCH (16:26)
[2024-07-06] MEDS: LR 1,000 ML IV ONE (16:27)
[2024-07-06 16:41] LABS: ETHYL ALCOHOL (ETHANOL) 0.004 % (0.000-0.010)
[2024-07-06 16:43] LABS: SALICYLATE LEVEL < 3.0 MG/DL (<30)
[2024-07-06 16:50] LABS: PROCALCITONIN 0.13 ng/ml
[2024-07-06 17:21] VITALS: BP 153/89; TEMP 100.5; O2SAT 94
[2024-07-06 17:46] VITALS: BP 122/74; O2SAT 95
[2024-07-06] MEDS: D5W/0.45% SODIUM CHLORIDE 1,000 ML IV SCH (18:00)
[2024-07-06] MEDS: MULTIVITAMINS/MINERALS THERAP 1 TAB PO SCH (18:56)
[2024-07-06] MEDS: ATORVASTATIN 20 MG TAB PO SCH (18:56)
[2024-07-06 19:49] VITALS: BP 121/64; TEMP 97.7; O2SAT 100
[2024-07-06 20:27] LABS: KETONE, URINE AUTO RFX TRACE mg/dL (NEGATIVE); LEUKOCYTE ESTERASE UR AUTO RFX NEGATIVE (NEGATIVE); NITRITE, URINE AUTO RFX NEGATIVE (NEGATIVE); RBC, URINE AUTO RFX TNTC /HPF (0-3); SQUAM EPITHELIAL CELL UR AURFX 0 /HPF (0-6); WBC, URINE AUTO RFX 2 /HPF (0-3)
[2024-07-06] MEDS: DOCUSATE SODIUM 100MG CAPSULE PO SCH (20:53)
[2024-07-06] MEDS: APIXABAN 5 MG TAB PO SCH (20:53)
[2024-07-06] MEDS: METOPROLOL TART 25 MG TABLET PO SCH (20:53)
[2024-07-06 20:57] LABS: AMPHETAMINES LEVEL URINE NEGATIVE (NEGATIVE)
[2024-07-06 20:58] LABS: BARBITURATES URINE NEGATIVE (NEGATIVE); BENZODIAZEPINES URINE NEGATIVE (NEGATIVE); CANNABINOIDS URINE NEGATIVE (NEGATIVE); COCAINE METABOLITE URINE NEGATIVE (NEGATIVE); METHADONE URINE NEGATIVE (NEGATIVE); OPIATES URINE NEGATIVE (NEGATIVE); PHENCYCLIDINE URINE NEGATIVE (NEGATIVE)
[2024-07-06] MEDS: ACETAMINOPHEN *IV* 1,000 MG in IV 1 EA IV ONE (21:42)
[2024-07-07 04:12] VITALS: BP 121/62; TEMP 97.3; O2SAT 96
[2024-07-07 04:45] LABS: CALCIUM LEVEL 7.8 MG/DL (8.3-10.6); CREATININE FOR GFR 1.24 MG/DL (0.70-1.30); GLOMERULAR FILTRATION RATE 59.5 (>42)
[2024-07-07 04:57] LABS: HEMATOCRIT 45.6 % (42.0-52.0); MEAN CORPUSCULAR HEMOGLOBIN 28.6 pg (27.0-33.0); MEAN CORPUSCULAR HGB CONC 32.9 g/dl (32.0-36.5); MEAN CORPUSCULAR VOLUME 86.9 fl (80.0-96.0); PLATELET COUNT, AUTOMATED 223 10^3/uL (150-450); RED BLOOD COUNT 5.25 10^6/uL (4.30-6.10); WHITE BLOOD COUNT 15.9 10^3/uL (4.0-10.0)
[2024-07-07 07:31] VITALS: BP 107/61; TEMP 97.2; O2SAT 95
[2024-07-07 09:51] LABS: DIGOXIN LEVEL 1.2 NG/ML (0.8-2.0)
[2024-07-07] MEDS: DIGOXIN INJ 0.5 MG/2 ML AMP IV ONE (10:05)
[2024-07-07 15:35] VITALS: BP 128/60; TEMP 97.1; O2SAT 97
[2024-07-07 20:13] VITALS: BP 132/63; TEMP 99; O2SAT 97
[2024-07-07] MEDS: ACETAMINOPHEN 325 MG TAB PO PRN (20:18)
[2024-07-08] VITALS (7 sets, daily range): BP systolic 102–132; BP diastolic 52–65; PULSE 62–72; TEMP 97.6–99.5; O2SAT 93–97
[2024-07-08] MEDS: MOM 30ML SUSPENSION UDC PO PRN (18:17)
[2024-07-09 00:48] VITALS: BP 134/62; TEMP 99.7; O2SAT 94
[2024-07-09 03:59] VITALS: BP 132/83; TEMP 98.2; O2SAT 95
[2024-07-09] MEDS: DIGOXIN 0.25 MG TAB PO SCH (08:08)
[2024-07-09 08:13] VITALS: BP 155/69; TEMP 98.1; O2SAT 94
[2024-07-09 12:22] VITALS: BP 107/55; TEMP 97.9; O2SAT 93
[2024-07-09 20:18] VITALS: BP 151/74; TEMP 97.8; O2SAT 95
[2024-07-09 23:32] VITALS: BP 139/70; TEMP 97.5; O2SAT 95
[2024-07-10 07:50] VITALS: BP 155/68; TEMP 97.8; O2SAT 95
[2024-07-10 13:41] LABS: BASO % 0.3 % (0.0-1.0); EOS # 0.3 10^3/uL (0.0-0.5); EOS % 2.2 % (0.0-3.0); HEMATOCRIT 47.6 % (42.0-52.0); HEMOGLOBIN 14.7 g/dl (13.5-17.5); LYMPH # 2.2 10^3/uL (1.5-5.0); LYMPH % 15.1 % (24.0-44.0); MEAN CORPUSCULAR HEMOGLOBIN 27.7 pg (27.0-33.0); MEAN CORPUSCULAR HGB CONC 30.9 g/dl (32.0-36.5); MEAN CORPUSCULAR VOLUME 89.6 fl (80.0-96.0); MONO # 0.9 10^3/uL (0.0-0.8); MONO % 6.6 % (2.0-8.0); NEUTROPHILS # 10.7 10^3/uL (1.5-8.5); NEUTROPHILS % 75.2 % (36.0-66.0); PLATELET COUNT, AUTOMATED 255 10^3/uL (150-450); RED BLOOD COUNT 5.31 10^6/uL (4.30-6.10); WHITE BLOOD COUNT 14.3 10^3/uL (4.0-10.0)
[2024-07-10 14:38] LABS: ALBUMIN 2.8 G/DL (3.2-5.2); BILIRUBIN,TOTAL 0.5 MG/DL (0.3-1.2); CALCIUM LEVEL 9.5 MG/DL (8.3-10.6); CREATININE FOR GFR 1.12 MG/DL (0.70-1.30); GLOMERULAR FILTRATION RATE 67.2 (>42); POTASSIUM SERUM 4.5 MMOL/L (3.5-5.1); TOTAL PROTEIN 6.8 G/DL (5.7-8.2)
[2024-07-10 16:30] VITALS: BP 143/58; TEMP 98.6; O2SAT 94
[2024-07-10 20:22] VITALS: BP 98/55; TEMP 98.3; O2SAT 94
[2024-07-10] MEDS: LIDOCAINE W/EPINEPHRINE 1% 20ML VIAL SC ONE (22:11)
[2024-07-11 04:21] VITALS: BP 130/60; TEMP 97.5; O2SAT 95
[2024-07-11 07:28] VITALS: BP 128/65; TEMP 98.3; O2SAT 94
[2024-07-11] MEDS ORDERED: LIDOCAINE 1% MDV 20ML VIAL As Ordered ONE (13:19)
[2024-07-11 16:00] VITALS: BP 110/57; TEMP 97.7; O2SAT 95
[2024-07-11 20:07] VITALS: BP 122/58; TEMP 97.2; O2SAT 92
[2024-07-12 03:49] VITALS: BP 129/62; TEMP 98.6; O2SAT 95
[2024-07-12 07:36] VITALS: BP 124/61; TEMP 98.3; O2SAT 95
[2024-07-12 15:49] VITALS: BP 105/57; TEMP 98.8; O2SAT 93
[2024-07-12 19:14] VITALS: BP 120/62; TEMP 97.9; O2SAT 95
[2024-07-13 07:30] VITALS: BP 127/60; TEMP 97.1; O2SAT 97
[2024-07-13 09:37] VITALS: BP 127/60
[2024-07-13 12:24] VITALS: BP 159/72; TEMP 97.6; O2SAT 98
[2024-07-13] MEDS ORDERED: ATOR1TAB19 PO (12:54)
== END 2024-07-13 14:02 | DRG 571 ==
LOC: EDBD 11:49 → M ED 11:49 → M ED INP 15:41 → M PCU 17:11
PROVIDERS: ADMIT Student in an Organized Health Care Education/Training Program; ATTEND Student in an Organized Health Care Education/Training Program
PROC: 0JBM0ZZ Excision of Left Upper Leg Subcutaneous Tissue and Fascia, Open Approach (ICD-10-PCS; principal; 2024-07-11)
DX: L89.226 Pressure-induced deep tissue damage of left hip (principal); M62.82 Rhabdomyolysis; I69.351 Hemiplegia and hemiparesis following cerebral infarction affecting right dominant side; N17.9 Acute kidney failure, unspecified; E87.0 Hyperosmolality and hypernatremia; G93.40 Encephalopathy, unspecified; N18.31 Chronic kidney disease, stage 3a; F03.90 Unspecified dementia, unspecified severity, without behavioral disturbance, psychotic disturbance, mood disturbance, and anxiety; I48.91 Unspecified atrial fibrillation; E78.5 Hyperlipidemia, unspecified; S70.212A Abrasion, left hip, initial encounter; R53.1 Weakness; F17.210 Nicotine dependence, cigarettes, uncomplicated; M10.9 Gout, unspecified; L89.222 Pressure ulcer of left hip, stage 2; Z86.16 Personal history of COVID-19; I65.23 Occlusion and stenosis of bilateral carotid arteries; Z79.01 Long term (current) use of anticoagulants; E86.0 Dehydration; Z79.899 Other long term (current) drug therapy; W18.09XA Striking against other object with subsequent fall, initial encounter; Y92.009 Unspecified place in unspecified non-institutional (private) residence as the place of occurrence of the external cause

== ENCOUNTER → 2024-07-20 | Outpatient (REF) ==
[~2024-07-20] MED LIST changes: +ACET1TAB55 PO; +ATOR1TAB19 PO; +MULT-40 PO
[2024-07-20 10:59] LABS: BASO % 0.3 % (0.0-1.0); EOS # 0.2 10^3/uL (0.0-0.5); EOS % 1.6 % (0.0-3.0); HEMATOCRIT 38.3 % (42.0-52.0); HEMOGLOBIN 12.2 g/dl (13.5-17.5); LYMPH # 1.7 10^3/uL (1.5-5.0); LYMPH % 16.1 % (24.0-44.0); MEAN CORPUSCULAR HEMOGLOBIN 28.6 pg (27.0-33.0); MEAN CORPUSCULAR HGB CONC 31.9 g/dl (32.0-36.5); MEAN CORPUSCULAR VOLUME 89.9 fl (80.0-96.0); MONO # 0.6 10^3/uL (0.0-0.8); MONO % 5.3 % (2.0-8.0); NEUTROPHILS % 76.3 % (36.0-66.0); PLATELET COUNT, AUTOMATED 240 10^3/uL (150-450); RED BLOOD COUNT 4.26 10^6/uL (4.30-6.10); WHITE BLOOD COUNT 10.4 10^3/uL (4.0-10.0)
[2024-07-20 11:26] LABS: ALBUMIN 2.5 G/DL (3.2-5.2); BILIRUBIN,TOTAL 0.6 MG/DL (0.3-1.2); CALCIUM LEVEL 8.6 MG/DL (8.3-10.6); CREATININE FOR GFR 1.16 MG/DL (0.70-1.30); GLOMERULAR FILTRATION RATE 64.5 (>42); POTASSIUM SERUM 4.2 MMOL/L (3.5-5.1); TOTAL PROTEIN 5.7 G/DL (5.7-8.2)
[2024-07-20 11:28] LABS: THYROID STIMULATING HORMONE 3.747 uIU/ML (0.55-4.78)
== END ==
LOC: SKLAB2 09:13
PROVIDERS: ATTEND Internal Medicine
DX: R94.6 Abnormal results of thyroid function studies (principal)

== ENCOUNTER → 2024-09-28 | Outpatient (CLI) | payer MEDICARE, BC | LOC: M LAB 09:23 | PROVIDERS: ATTEND Physician Assistant | DX: M79.601 Pain in right arm (principal) ==

== ENCOUNTER → 2024-10-20 | Outpatient (REF) | payer MEDICARE, BC ==
[2024-10-20 10:52] LABS: PLATELET COUNT, AUTOMATED 184 10^3/uL (150-450)
[2024-10-20 11:08] LABS: ALT/SGPT 36.0 U/L (7.0-40); AST/SGOT 23.0 U/L (<34); CALCIUM LEVEL 9.3 MG/DL (8.3-10.6); CARBON DIOXIDE LEVEL 26.0 MMOL/L (20-31); CHLORIDE LEVEL 104.0 MMOL/L (98-107); CHOLESTEROL LEVEL 186.0 MG/DL (<200); CHOLESTEROL RISK RATIO 4.65 (<5); CREATININE FOR GFR 1.22 MG/DL (0.70-1.30); GLOMERULAR FILTRATION RATE 60.7 (>42); LDL CHOLESTEROL 85.2 MG/DL (<100); NON-HDL-C 146.0 MG/DL; POTASSIUM SERUM 4.5 MMOL/L (3.5-5.1); SODIUM LEVEL 141.0 MMOL/L (136-145); TRIGLYCERIDES LEVEL 304.0 MG/DL (<150)
[2024-10-20 11:15] LABS: DIGOXIN LEVEL 1.2 NG/ML (0.8-2.0)
== END ==
LOC: SKLAB2 07:00
PROVIDERS: ATTEND Internal Medicine
DX: E78.5 Hyperlipidemia, unspecified (principal); I48.91 Unspecified atrial fibrillation; I51.9 Heart disease, unspecified

== ENCOUNTER → 2024-10-26 | Outpatient (REF) | payer MEDICARE, BC ==
[2024-10-26 10:38] LABS: PLATELET COUNT, AUTOMATED 177 10^3/uL (150-450)
== END ==
LOC: SKLAB2 09:40
PROVIDERS: ATTEND Internal Medicine
DX: D72.829 Elevated white blood cell count, unspecified (principal)

== ENCOUNTER 2024-12-22 19:43 | Emergency (ER) | payer MEDICARE, BC ==
[~2024-12-22] VITALS: Ht 188 cm; Wt 72.7 kg
[2024-12-22 22:37] VITALS: BP 143/82; TEMP 96.9; O2SAT 92
== END 2024-12-22 22:32 | disposition home or self-care (01) ==
LOC: M ED 19:43
DX: S00.93XA Contusion of unspecified part of head, initial encounter (principal); S50.01XA Contusion of right elbow, initial encounter; W01.198A Fall on same level from slipping, tripping and stumbling with subsequent striking against other object, initial encounter; M50.30 Other cervical disc degeneration, unspecified cervical region; I67.2 Cerebral atherosclerosis; Z86.79 Personal history of other diseases of the circulatory system; Z79.01 Long term (current) use of anticoagulants; Z79.02 Long term (current) use of antithrombotics/antiplatelets; Z79.899 Other long term (current) drug therapy; Y92.129 Unspecified place in nursing home as the place of occurrence of the external cause; Y93.89 Activity, other specified; Y99.9 Unspecified external cause status

== ENCOUNTER → 2025-01-04 | Outpatient (REF) | payer MEDICARE, BC ==
[2025-01-04 12:17] LABS: PLATELET COUNT, AUTOMATED 198 10^3/uL (150-450)
[2025-01-04 12:30] LABS: ESTIMATED AVERAGE GLUCOSE 223.0 MG/DL (60-110)
[2025-01-04 12:45] LABS: ALT/SGPT 37.0 U/L (7.0-40); AST/SGOT 22.0 U/L (<34); CALCIUM LEVEL 9.0 MG/DL (8.3-10.6); CARBON DIOXIDE LEVEL 28.0 MMOL/L (20-31); CHLORIDE LEVEL 102.0 MMOL/L (98-107); CREATININE FOR GFR 1.32 MG/DL (0.70-1.30); DIGOXIN LEVEL 1.2 NG/ML (0.8-2.0); GLOMERULAR FILTRATION RATE 55.2 (>42); POTASSIUM SERUM 4.4 MMOL/L (3.5-5.1); SODIUM LEVEL 139.0 MMOL/L (136-145)
== END ==
LOC: SKLAB7 11:25
PROVIDERS: ATTEND Family Medicine
DX: I48.91 Unspecified atrial fibrillation (principal); N18.9 Chronic kidney disease, unspecified; I12.9 Hypertensive chronic kidney disease with stage 1 through stage 4 chronic kidney disease, or unspecified chronic kidney disease; Z79.899 Other long term (current) drug therapy